=== PATIENT | male | born 1970 ===

== ENCOUNTER 2024-12-10 08:29 | Day surgery (SDC) | payer BC ==
[~2024-12-10 08:29] MED LIST: Sodium Chloride 0.9% 10 ML Syringe FLUSH PRN; Sodium Chloride 0.9% 10 ML Syringe FLUSH SCH
[2024-12-10] MEDS: Lactated Ringers 1,000 ML IV SCH (09:00)
[2024-12-10] MEDS ORDERED: Propofol 200 MG/20 ML SDV ONE ×3 (09:34→10:31)
[2024-12-10] MEDS ORDERED: Lidocaine 1% 4 ML ONE (09:35)
[2024-12-10] MEDS ORDERED: Glycopyrrolate 0.2 MG/ML 2 ML SDV ONE (09:36)
[2024-12-10 11:27] VITALS: BP 120/80; PULSE 80
== END 2024-12-10 11:20 | disposition home or self-care (01) ==
LOC: JD.SDS 08:29
PROVIDERS: ATTEND Surgery
DX: Z12.11 Encounter for screening for malignant neoplasm of colon (principal); K21.9 Gastro-esophageal reflux disease without esophagitis; K20.0 Eosinophilic esophagitis; K31.7 Polyp of stomach and duodenum; K31.89 Other diseases of stomach and duodenum; Z80.0 Family history of malignant neoplasm of digestive organs
CPT/HCPCS: 00813; J2704; J3490; J7120